=== PATIENT | female | born 1980 | race Caucasian/White ===

== ENCOUNTER 2017-01-19 00:42 | Emergency (ER) | payer OTHER ==
[2017-01-19 01:01] VITALS: RESP 16; TEMP 97.5
[2017-01-19 02:04] LABS: HIV ANTIBODY NEGATIVE (N); HIV-1 P24 ANTIGEN NEGATIVE (N)
--- NOTE | 2017-01-19 06:16 | PDOC ---
Body Fluid Exposure HPI - General Chief Complaint: Body Fluid Exposure Stated Complaint: EMP EXPOSURE Date Seen by Provider: 01/19/17 Time Seen by Provider: 01:00 Source: POSITIVE: Patient Exam Limitations: POSITIVE: No limitations Nurse's Notes Reviewed & Considered: Yes - History of Present Illness Initial Comments: The patient is a 36-year-old female. 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 The physician was injecting lidocaine into the wound. Some lidocaine splashed into her right eye and mouth. Source patient has no known blood borne illnesses. Patient has no known blood borne illnesses. Have you received a tetanus shot in the past 10 years?: Yes Body Location Affected: REPORTS: Other (Right eye , mouth as above) Timing: REPORTS: Abrupt Duration: 1 hour Location at Time of Onset: REPORTS: Work Context / Mechanism: REPORTS: Other (Intact mucous membrane exposure to blood has above) Severity: Mild Associated Symptoms: REPORTS: None Any Prior Injuries Related to Current Complaint?: No - Patient Home Medications Home Medications: Home Medications Cetirizine HCl [Zyrtec] 1 tab PO DAILY #30 tab 09/21/14 Multivitamin [Multiple Vitamins] 1 tab PO DAILY #30 tab 09/21/14 Ascorbic Acid [Vitamin C] 2 tab PO QD #60 tab 10/04/15 Cranberry Extract [Cranberry] 1 cap PO QD #30 cap 10/04/15 Gluc/Balwinder-MSM#1/Vit C/Brown/Bor [Sbiumlv-Cbomj-Ycz Complex Cplt] 1 tab PO QD #30 tab 10/04/15 [place]-3 Fatty Acids/Fish Oil [Fish Oil 1,000 Mg Capsule] 1 cap PO QD #30 cap Vitamin A 1 cap PO QD #30 cap 10/04/15 Zinc Gluconate [Zinc] 1 tab PO QD #30 tab 10/04/15 Cholecalciferol (Vitamin D3) [Vitamin D3] 1 cap PO QD #30 cap 10/09/15 Apraclonidine HCl 2 drop OP TID #1 bottle 01/03/16 - Patient Allergies Allergies/Adverse Reactions: Allergies Allergy/AdvReac Type Severity Reaction Status Date / Time Sulfa (Sulfonamide Allergy Severe Anaphylaxis Unverified 01/19/17 00:57 Antibiotics) Past Medical History - heen HEENT History: Denies History Cardiovascular History: Denies History Respiratory History: Denies History Gastrointestinal History: Denies History Genitourinary History: Denies History Endocrine History: Denies History Musculoskeletal History: Denies History Neurological History: Denies History Blood Disorders: Denies History Psychiatric History: Denies History Female Reproductive History: Denies History Obstetrical History: Denies History Cancer History: Denies History In Past Year Been Physically Harmed or Verbally Threatened: No History of MDRO: No Tobacco Use: Never Smoker Alcohol Use: Occasionally Substance Use Type: None Previous Surgical History: Yes Type / Date of Surgery: breast augmentation, tummy tuck, appy, , tubal ligation, bladder sling Significant Family History: No pertinent family hx Past Medical History Reviewed: Reviewed - No Changes ROS - Limitations ROS Limitations: No Limitations Constitution: REPORTS: Denies Symptoms Cardiovascular: REPORTS: Denies Cardiac Symptoms Respiratory: REPORTS: Denies Resp Symptoms Neurological: REPORTS: Denies Neuro Symptoms Gastrointestinal: REPORTS: Denies GI Symptoms Endocrine: REPORTS: Denies Symptoms Musculoskeletal: REPORTS: Denies MS Symptoms Genitourinary: REPORTS: Denies Symptoms Eyes: REPORTS: Denies Symptoms ENT: REPORTS: Denies Symptoms Skin: REPORTS: Denies Skin Symptoms Lympathic: REPORTS: Denies Lympathic Symptoms Immunologic: POSITIVE: Denies Symptoms Psychiatric: POSITIVE: Denies Psych Symptoms Body Fluid Exposure PE - General Appearance General Appearance: REPORTS: Alert, Cooperative, No Acute Distress, No Evidence of Trauma - HEENT HEENT: POSITIVE: Head Inspection Nml, Eyes Inspection Nml, Ears Inspection Nml, Nose Inspection Nml, Oral/Dental Inspect. Nml, Pharynx Inspect. Nml, PERRL, EOMI - Pupil Size Pupil Size: 3 mm: Bilateral (PERRLA) - Neck Neck: POSITIVE: Non Tender, Painless ROM, Trachea Midline - Respiratory / CVS Respiratory / CVS: POSITIVE: Chest Non Tender, No Ecchymosis, Breath Sounds Normal, No Respiratory Distress, Heart Sounds Normal, Regular Rate/Rhythm Peripheral Pulses: Radial (R): 2+, Radial (L): 2+ - Skin Skin: POSITIVE: Intact, Warm, Dry, Normal For Race, No Rash - Neurological / Psychological Neuro / Psych: POSITIVE: Oriented X3, rehab spec Normal As Tested, Motor Normal, Sensation Normal, Mood Appropriate, Affect Appropriate, Reflexes Normal Body Fluid Exposure Progress - Results Reviewed by me Lab Results:: Laboratory Results 01/19/17 Range/Units 01:15 HIV 1&2 Antibody Rapid Negative (N) HIV P24 Antigen Negative (N) - Patient's Progress Pain Medication Addressed: POSITIVE: Not Applicable School/Work Release Addressed: POSITIVE: Not Applicable Re-Examine Time:: 01:15 Re-Examine Comment: Patient lavaged eye after incident. Rapid HIV on source patient negative. Appropriate blood specimens drawn on source patient and patient. Status: POSITIVE: Unchanged - Consult Counseled: POSITIVE: Patient, RE: Lab Results, RE: DX, RE: Need for F/U Patient Care Time - Estimated PCT Patient Care Time (In Minutes): 20 Vital Signs - Recent Vital Signs Vital Signs: Vital Signs (Last 8 hours) Temp Pulse Resp BP Pulse Ox 01/19/17 00:43 97.5 F 79 16 114/77 97 - VS Reviewed Vital Signs Reviewed: Yes Discharge Clinical Impression: Hx of exposure to hazardous bodily fluids Discharge Disposition: Discharged to Home Condition: Stable Patient Instructions Given at Discharge: Postexposure Prophylaxis (ED) Additional Instructions: Return anytime as necessary. Follow-up with your primary care provider. Follow Up With: NAYELI VIRAMONTES [Primary Care Provider] - (Return as necessary. Follow-up with your primary care provider.)
[2017-01-21 16:12] LABS: HEPATITIS B CORE AB, TOTAL Negative (Negative)
== END 2017-01-19 02:30 | disposition home or self-care (01) ==
LOC: ER 00:42
DX: Z77.21 Contact with and (suspected) exposure to potentially hazardous body fluids (principal); X58.XXXA Exposure to other specified factors, initial encounter; Y92.238 Other place in hospital as the place of occurrence of the external cause; Y99.0 Civilian activity done for income or pay
CPT/HCPCS: 86703; 86704; 86803; 99282